=== PATIENT | female | born 1950 | race Caucasian/White ===

== ENCOUNTER → 2017-07-10 | Day surgery (SDC) | payer OTHER ==
[~2017-07-10] MED LIST: ACETAMINOPHEN 1000 MG/100 ML 100 ML IV ONE; LACTATED RINGER'S 1000 ML INJ 1,000 ML ONE; MIDAZOLAM HCL 2 MG/2 ML VIAL ONE; ONDANSETRON HCL 4 MG/2 ML VIAL IV PUSH ONE; PROPOFOL 200 MG/20 ML AMP IV ONE; SODIUM CHLORIDE 0.9% 250 ML ADDBAG IV ONE; VANCOMYCIN HCL 1000 MG VIAL ONE; ceFAZolin INJ 1,000 MG VIAL ONE
--- NOTE | 2017-07-10 19:30 | MP ---
cc: Tamir Laboy MD, Alvaro R MD DATE OF OPERATION: 07/10/2017 DATE OF PROCEDURE: 07/10/2017 PREOPERATIVE DIAGNOSIS: Invasive Ductal Carcinoma RIGHT breast POSTOPERATIVE DIAGNOSIS: Invasive Ductal Carcinoma RIGHT breast PROCEDURE PERFORMED: 1. Excision sentinel lymph nodes, right axilla x 3. 2. Needle localized wide local excision, right breast. 3. Placement of intraoperative radiotherapy probe and removal of intraoperative radiotherapy probe. ANESTHESIA: LMA. SURGEON: Tamir Laboy MD CLOTHING SORTER: PINEDA Chamorro The nurse practitioner's presence was required for mobilization, visualization, retraction, and resection of all important structures. She was present for the entirety of the procedure from beginning to end. ESTIMATED BLOOD LOSS: 30 mL. COMPLICATIONS: None. DRAINS: None. SPECIMENS: 1. [place] lymph nodes, right axilla x 3 with some accompanying axillary tissue. 2. Needle localized right breast tissue with 2 additional margins (medial and lateral margins). PROCEDURE IN DETAIL: The patient was seen in the Department of Radiology, where she underwent needle localization procedure and injection with technetium-99m sulfur colloid in the Department of Nuclear Medicine. She was taken back down for re-imaging 90 minutes later, at which point the sentinel lymph nodes were recognized and marked by the radiologist. The patient was seen in the holding area and the right breast marked by the undersigned adjacent to where the needle extruded from the skin. She was then taken to the operating room, and placed on the operating table in the supine position. After an adequate level of laryngeal mask anesthesia was instituted, the right breast was prepped and draped in the field with the axilla. Timeout was taken confirming the correct patient, site, and procedure to be performed. Skin and subcutaneous tissue was infiltrated with local anesthetic around the needle site, as well as in the right axilla. Incision was made in the axilla and dissection carried down to where activity above background was noted. A total of 3 sentinel lymph nodes were excised from the axilla and passed off the table. All had substantial activity above background, and no clinically suspicious nodes were noted. Re-examination of the axilla with the navigator probe revealed no further substantial activity above background. As the wound was hemostatic, it was closed in 2 layers with interrupted 3-0 Vicryl suture and 5-0 PDS in a running subcuticular fashion. This was toweled off and attention turned to the breast. A circumareolar incision was made midway between the needle insertion site and the nipple areolar complex. This was from approximately the 7 o'clock to 9 o'clock position on the breast. Dissection was carried down inferiorly to the needle, which was cut at the skin and brought into the wound. A rough spherical shaped piece of tissue was removed surrounding the wire. This was dissected all the way down to the chest wall and muscle was seen. The specimen was oriented with silk sutures and passed off the table. Radiologic confirmation of the specimen containing the lesion was reported back to the undersigned. It was reported also that there was some closeness to one margin and thus additional margins of tissue were taken medially and laterally. The wound was made hemostatic and two #1 Prolene sutures were fashioned deep and more superficial to allow for placement of a spherical intraoperative radiotherapy probe. A 4.0 probe was chosen and placed into the wound after cinching down the deeper suture. The more superficial suture, which had been placed in a pursestring fashion, was simply cinched down and was not tied. Intraoperative ultrasound was utilized to document distance between the skin and the probe. Dr. Rivera performed the measurements while the undersigned utilized the probe. Please see his dictation for this portion of the procedure. With minimum of 1.26 cm of tissue at the thinnest point, all 4 quadrants were seen to have adequate tissue between the probe and the skin surface. At this point, the probe was removed from the breast, attached to the radiation device and the radiation device swung into the field. The probe was once again placed into the breast and the more superficial pursestring suture was cinched down. Ultrasound probe measurements once again confirmed adequate tissue with greater than [address] around between the skin surface and the radiation source. At this point, wet laps were placed and lead white were placed over the breast. After radiation therapy was completed, the sutures were cut and the probe removed from the breast. This was swung out of the way and the wound was reassessed. Two small oozing points were controlled with electrocautery. With hemostasis assured, the remaining local anesthetic was injected into the cavity and the wound closed in 2 layers with interrupted 3-0 Vicryl suture and 5-0 PDS in a running subcuticular fashion. Both wounds were dressed with Steri-Strips. The patient was extubated and taken back to the recovery room in stable condition. She tolerated the procedure well. MD BULMARO Leary/AMBROSIO , 07:05 PM , 07:29 PM DANK
--- NOTE | 2017-07-15 08:59 | RADONCOP ---
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 SURGEON: Tamir Laboy ANESTHESIA: General ESTIMATED BLOOD LOSS: Minimal INDICATIONS: Patient is a 66 year old female presenting with right breast cancer. She has elected to receive targeted intraoperative radiation therapy to the right breast. DESCRIPTION OF PROCEDURE: Patient was taken to the operating room and placed on the table in the supine position. Following induction of general anesthesia, the right breast and arm were prepped and draped sterilely. Ultrasound was performed of the breast to document the location of the breast malignancy. The wound was prepared for intraoperative radiation therapy. Based on the diameter of the cavity, a 4.0cm radiation applicator was selected for the delivery of intraoperative radiation therapy. The applicator was then sterilely mounted onto the Intrabeam Stand. Retracting sutures were placed within the skin to be used to retract the skin edges away from the radiation source. The 4.0cm Radiation applicator was then sterilely inserted into the wound. The superficial purse-string suture was tied down. Ultrasound was performed of the breast to document conformity of the surgical margins and the distance from the applicator to the skin surface was 7mm or more. The retracting sutures were then secured and a moistened lap pad was placed on the skin surface, followed by an external radiation barrier. Intraoperative radiotherapy was then initiated by the Radiation Oncologist. Total treatment time was 25 minutes. Upon completion of the intraoperative radiotherapy treatment, the radiation applicator, purse-string sutures and retracting sutures were removed from the wound. The wound was once again irrigated. Hemostasis was confirmed. The patient was then turned back over to the surgeon, Dr. Tamir Laboy in stable condition for completion of surgical procedure. David King MD 07/15/2017 8:58:34 AM This report was verified and signed electronically
--- NOTE | 2017-07-15 08:59 | RADONCENDT ---
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 FOLLOW UP PLAN: Patient to be seen in 6 weeks in the [place] office. David King MD 07/15/2017 8:58:15 AM This report was verified and signed electronically
== END | disposition home or self-care (01) ==
LOC: ESDC 07:40
PROVIDERS: ATTEND Surgery Trauma Surgery
DX: D05.11 Intraductal carcinoma in situ of right breast (principal)
CPT/HCPCS: 00400; 01610; 19294; 19301; 38525; 88307; J0131; J0690; J2250; J2405; J3010; J3370; J7120; 88305